=== PATIENT | female | born 1980 | race Caucasian/White ===

== ENCOUNTER → 2019-11-29 09:35 | Outpatient (CLI) | payer OTHER, MEDICAID, SELFPAY ==
--- NOTE | 2019-11-29 09:40 | US_ITS ---
STUDY: ULTRASOUND OF THE FEMALE PELVIS - COMPLETE REASON FOR EXAM: Female, 39 years old. M Menorrhagia US - Pelvic, Tvag LMP: October 08, 2019. TECHNIQUE: Transvaginal TECHNICAL QUALITY: Adequate. COMPARISON: None. FINDINGS: The uterus is anteverted and is tilted to the right side of the pelvis. The uterus measures 8.9 cm x 5.3 cm x 4.1 cm. Normal uterine cervix. The endometrium measures 6.0 mm in thickness, and is hyperechoic. There is no demonstrated endometrial mass. There is no demonstrated myometrial mass. I.U.D. - The patient does not have an I.U.D. The right ovary is non-visualized. The left ovary is visualized. The left ovary measures 2.4 cm x 1.4 cm x 1.3 cm. A dominant follicle is seen within the left ovary. There is no visualized left adnexal mass or complex lesion. There is normal arterial and normal venous vascularity. There is no fluid in the cul-de-sac. Polycystic ovary disease: No. US/Transvaginal Non- IMPRESSION: A dominant follicle is seen in the left ovary. Electronically Signed: Francisco Ronquillo, at 14:16 EDT , Service support ,
== END ==
PROVIDERS: PCP Nurse Practitioner Family
DX: N91.4 Secondary oligomenorrhea (principal)
CPT/HCPCS: 76830